=== PATIENT | male | born 1950 | race Caucasian/White ===

== ENCOUNTER 2017-11-16 15:33 | Emergency (ER) | payer MEDICARE ==
[2017-11-16] MEDS ORDERED: Aspirin 81 MG Tab.Chew PO ONE (15:42)
[2017-11-16] MEDS ORDERED: Sodium Chloride 0.9% 10 ML Syringe FLUSH PRN (15:44)
[2017-11-16] MEDS ORDERED: Metoprolol Tartrate 50 MG Tab PO ONE ×2 (15:45→16:31)
--- NOTE | 2017-11-16 15:48 | EDM.PDOC ---
ED HPI GENERAL MEDICAL PROBLEM - General Chief Complaint: Chest Pain Stated Complaint: CHEST PRESSURE Time Seen by Provider: 11/16/17 15:40 Source of Information: Reports: Patient History Limitations: Reports: Other (no records) - History of Present Illness INITIAL COMMENTS - FREE TEXT/NARRATIVE: 67 yo male presents with chest pressure on and off for a month. Sx's worse today. Has not been seen for this problem. Has not seen his doctor in yrs. Takes only an OTC antihistamine currently. [place] like he might pass out before arrival. Has a hx of borderline HTN, quit smoking in his 20's, no hx of diabetes, father first noted sx's of CAD in his 70's. No personal hx of CAD. Onset: Other Onset Date: 10/19/17 Duration: Week(s):, Waxing/Waning Location: Reports: Chest Quality: Reports: Pressure Severity: Moderate Improves with: Reports: None Worsens with: Reports: Other (unsure) Context: Reports: Other (unknown) Associated Symptoms: Reports: Chest Pain (heaviness with tired feeling in both arms.). Denies: Diaphoresis, Fever/Chills, Nausea/Vomiting, Shortness of Breath , Syncope Treatments [employer]: Reports: Other (see below) (none) Chest Pain Score (Numeric/FACES): 5 - Related Data Allergies Allergy/AdvReac Type Severity Reaction Status Date / Time No Known Allergies Allergy Verified 11/16/17 15:43 Home Meds: Home Meds Pseudoephedrine HCl [Sudafed] 30 mg PO DAILY 11/16/17 [History] ED ROS GENERAL - Review of Systems Review Of Systems: See Below Constitutional: Reports: No Symptoms HEENT: Reports: No Symptoms Respiratory: Reports: No Symptoms Cardiovascular: Reports: Chest Pain (heaviness) GI/Abdominal: Reports: No Symptoms : Reports: No Symptoms Musculoskeletal: Reports: No Symptoms Skin: Reports: No Symptoms Neurological: Reports: No Symptoms ED EXAM, GENERAL - Physical Exam Exam: See Below Exam Limited By: No Limitations General Appearance: Alert, WD/WN, No Apparent Distress Eye Exam: Bilateral Eye: Normal Inspection Ears: Normal External Exam, Normal Canal, Hearing Grossly Normal Ear Exam: Bilateral Ear: Auricle Normal, Canal Normal Nose: Normal Inspection, Normal Mucosa, No Blood Throat/Mouth: Normal Inspection, Normal Lips, Normal Oropharynx, Normal Voice, No Airway Compromise, Other (slightly dry oral mucosa.) Head: Atraumatic, Normocephalic Neck: Normal Inspection, Supple, Non-Tender Respiratory/Chest: No Respiratory Distress, Lungs Clear, Normal Breath Sounds, No Accessory Muscle Use, Chest Non-Tender Cardiovascular: Regular Rate, Rhythm, Tachycardia GI/Abdominal: Normal Bowel Sounds, Soft, Non-Tender, No Distention Extremities: Normal Inspection, Normal Range of Motion, Non-Tender, No Pedal Edema Neurological: Alert, Oriented, CN II-XII Intact, Normal Cognition, No Motor/ Sensory Deficits Psychiatric: Normal Affect, Normal Mood Skin Exam: Warm, Dry, Intact, Normal Color, No Rash Lymphatic: No Adenopathy EKG INTERPRETATION EKG Date: 11/16/17 Time: 15:40 Rhythm: NSR Rate (Beats/Min): 109 [place]: Normal P-Wave: Present QRS: LBBB ST-T: Normal QT: Normal Comparison: NA - No Prior EKG Course - Vital Signs Last Recorded V/S: Last Vital Signs Temp 36.6 C 11/16/17 15:42 Pulse 99 11/16/17 16:41 Resp 22 H 11/16/17 15:42 BP 122/69 11/16/17 16:41 Pulse Ox 96 11/16/17 15:42 - Orders/Labs/Meds Orders: Active Orders 24 hr Category Date Time Status Cardiac Monitoring [RC] .As Directed Care 11/16/17 15:41 Active EKG Documentation Completion [RC] ASDIRECTED Care 11/16/17 15:41 Active Chest 1V Frontal [CR] Stat Exams 11/16/17 16:51 Ordered UA W/MICROSCOPIC [URIN] Stat Lab 11/16/17 16:05 Ordered Lactated Ringers [Ringers, Lactated] 1,000 ml Med 11/16/17 16:23 Active IV BOLUS Sodium Chloride 0.9% [Saline Flush] Med 11/16/17 15:44 Active 10 ml FLUSH ASDIRECTED PRN Saline Lock Insert [OM.PC] Routine Oth 11/16/17 15:44 Ordered EKG 12 Lead [EK] Routine Ther 11/16/17 15:41 Ordered Medication Orders Lactated Ringer's (Ringers, Lactated) 1,000 mls @ 1,000 mls/hr IV BOLUS ONE Stop: 11/16/17 17:22 Last Admin: 11/16/17 16:33 Dose: 1,000 mls/hr Sodium Chloride (Saline Flush) 10 ml FLUSH ASDIRECTED PRN PRN Reason: Keep Vein Open Last Admin: 11/16/17 16:08 Dose: 10 ml Labs: Laboratory Tests 11/16/17 11/16/17 11/16/17 Range/Units 15:44 15:44 16:05 WBC 7.2 (4.5-11.0) K/uL RBC 5.14 (4.30-5.90) M/uL Hgb 14.8 (12.0-15.0) g/dL Hct 43.4 (40.0-54.0) % MCV 84 (80-98) fL MCH 29 (27-31) pg MCHC 34 (32-36) % Plt Count 222 (150-400) K/uL D-Dimer, Quantitative (0.0-400.0) ng/mL Sodium 139 L (140-148) mmol/L Potassium 3.9 (3.6-5.2) mmol/L Chloride 103 (100-108) mmol/L Carbon Dioxide 27 (21-32) mmol/L Anion Gap 12.9 (5.0-14.0) mmol/L BUN 21 H (7-18) mg/dL Creatinine 1.5 H (0.8-1.3) mg/dL Est Cr Clr Drug Dosing 49.90 mL/min Estimated GFR (MDRD) 47 L (>60) Glucose 126 H (74-106) mg/dL Calcium 8.7 (8.5-10.1) mg/dL Troponin I 0.019 (0.000-0.056) ng/mL Urine Color Yellow Urine Appearance Clear Urine pH 6.5 (4.5-8.0) Ur Specific [place] 1.015 (1.008-1.030) Urine Protein Negative (NEGATIVE) mg/dL Urine Glucose (UA) Normal (NEGATIVE) mg/dL Urine Ketones Negative (NEGATIVE) mg/dL Urine Occult Blood Negative (NEGATIVE) Urine Nitrite Negative (NEGAITVE) Urine Bilirubin Negative (NEGATIVE) Urine Urobilinogen Normal (NORMAL) mg/dL Ur Leukocyte Esterase Negative (NEGATIVE) Urine RBC 0-5 (0-5) Urine WBC 0-5 (0-5) Ur Epithelial Cells Rare Amorphous Sediment Not seen Urine Bacteria Not seen Urine Mucus Not seen 11/16/17 Range/Units 16:23 WBC (4.5-11.0) K/uL RBC (4.30-5.90) M/uL Hgb (12.0-15.0) g/dL Hct (40.0-54.0) % MCV (80-98) fL MCH (27-31) pg MCHC (32-36) % Plt Count (150-400) K/uL D-Dimer, Quantitative < 100 (0.0-400.0) ng/mL Sodium (140-148) mmol/L Potassium (3.6-5.2) mmol/L Chloride (100-108) mmol/L Carbon Dioxide (21-32) mmol/L Anion Gap (5.0-14.0) mmol/L BUN (7-18) mg/dL Creatinine (0.8-1.3) mg/dL Est Cr Clr Drug Dosing mL/min Estimated GFR (MDRD) (>60) Glucose (74-106) mg/dL Calcium (8.5-10.1) mg/dL Troponin I (0.000-0.056) ng/mL Urine Color Urine Appearance Urine pH (4.5-8.0) Ur Specific [place] (1.008-1.030) Urine Protein (NEGATIVE) mg/dL Urine Glucose (UA) (NEGATIVE) mg/dL Urine Ketones (NEGATIVE) mg/dL Urine Occult Blood (NEGATIVE) Urine Nitrite (NEGAITVE) Urine Bilirubin (NEGATIVE) Urine Urobilinogen (NORMAL) mg/dL Ur Leukocyte Esterase (NEGATIVE) Urine RBC (0-5) Urine WBC (0-5) Ur Epithelial Cells Amorphous Sediment Urine Bacteria Urine Mucus Meds: Medications Generic Name Dose Route Start Last Admin Trade Name Freq PRN Reason Stop Dose Admin Lactated Ringer's 1,000 mls @ 1,000 mls/hr 11/16/17 16:23 11/16/17 16:33 Ringers, Lactated IV 11/16/17 17:22 1,000 mls/hr BOLUS ONE Administration Sodium Chloride 10 ml 11/16/17 15:44 11/16/17 16:08 Saline Flush FLUSH 10 ml ASDIRECTED PRN Administration Keep Vein Open Discontinued Medications Generic Name Dose Route Start Last Admin Trade Name Freq PRN Reason Stop Dose Admin Aspirin 324 mg 11/16/17 15:42 11/16/17 16:06 Aspirin PO 11/16/17 15:43 324 mg ONETIME ONE Administration Clopidogrel Bisulfate 600 mg 11/16/17 16:31 11/16/17 16:40 Plavix PO 11/16/17 16:32 600 mg ONETIME ONE Administration Metoprolol Tartrate 50 mg 11/16/17 15:45 11/16/17 16:06 Lopressor PO 11/16/17 15:46 50 mg ONETIME ONE Administration Metoprolol Tartrate 50 mg 11/16/17 16:31 11/16/17 16:41 Lopressor PO 11/16/17 16:32 50 mg ONETIME ONE Administration Nitroglycerin 0.4 mg 11/16/17 15:44 11/16/17 16:31 Nitrostat SL 0.4 mg Q5M PRN Administration Chest Pain - Radiology Interpretation Free Text/Narrative:: CXR-no acute findings Departure - Departure Time of Disposition: 17:30 Disposition: DC/Tfer to Acute Hospital 02 Reason for Transfer *Q: Other Condition: Fair Clinical Impression: Acute coronary syndrome Referrals: PCP,None [Primary Care Provider] - Forms: ED Department Discharge - My Orders Last 24 Hours: My Active Orders 11/16/17 15:41 Cardiac Monitoring [RC] .As Directed EKG Documentation Completion [RC] ASDIRECTED EKG 12 Lead [EK] Routine 11/16/17 15:44 Sodium Chloride 0.9% [Saline Flush] 10 ml FLUSH ASDIRECTED PRN Saline Lock Insert [OM.PC] Routine 11/16/17 16:05 UA W/MICROSCOPIC [URIN] Stat 11/16/17 16:23 Lactated Ringers [Ringers, Lactated] 1,000 ml IV BOLUS 11/16/17 16:51 Chest 1V Frontal [CR] Stat - Assessment/Plan Last 24 Hours: My Active Orders 11/16/17 15:41 Cardiac Monitoring [RC] .As Directed EKG Documentation Completion [RC] ASDIRECTED EKG 12 Lead [EK] Routine 11/16/17 15:44 Sodium Chloride 0.9% [Saline Flush] 10 ml FLUSH ASDIRECTED PRN Saline Lock Insert [OM.PC] Routine 11/16/17 16:05 UA W/MICROSCOPIC [URIN] Stat 11/16/17 16:23 Lactated Ringers [Ringers, Lactated] 1,000 ml IV BOLUS 11/16/17 16:51 Chest 1V Frontal [CR] Stat
[2017-11-16] MEDS: Nitroglycerin 0.4 MG Tab.SL SL PRN ×3 (16:08→16:31)
[2017-11-16] MEDS ORDERED: Lactated Ringers 1,000 ML IV ONE (16:23)
[2017-11-16] MEDS ORDERED: Clopidogrel 75 MG Tab PO ONE (16:31)
[2017-11-16] MEDS ORDERED: Heparin Sodium 5,000 Units/ML Vial IVPUSH ONE (17:13)
[2017-11-16] MEDS ORDERED: Heparin Sodium/D5W 25,000 UNITS/500 ML BAG IV SCH (17:15)
[2017-11-16] MEDS ORDERED: Heparin Sodium/D5W 500 ML ONE (17:26)
[2017-11-16] MEDS ORDERED: Nitroglycerin/D5W 25 MG/250 ML BOTTLE IV SCH (17:45)
[2017-11-16] MEDS ORDERED: Sodium Chloride 0.9% 1,000 ML IV SCH (17:45)
--- NOTE | 2017-11-17 10:17 | CR ---
Heart size upper limits of normal. Pulmonary vasculature within normal limits. No focal consolidation . Minimal atelectasis left lung base.
== END 2017-11-16 18:06 ==
LOC: JP.ED 15:33
DX: I24.9 Acute ischemic heart disease, unspecified (principal); Z87.891 Personal history of nicotine dependence; Z79.899 Other long term (current) drug therapy
CPT/HCPCS: 36415; 71045; 80048; 81001; 84484; 85027; 85379; 93005; 96361; 96365; 96376; 99285; A9270; J1644; J7040; J7050; J7120